=== PATIENT | male | born 1995 | race Caucasian/White ===

== ENCOUNTER 2020-08-04 17:59 | Emergency (ER) | payer SELFPAY ==
[~2020-08-04] VITALS: Ht 182.9 cm; Wt 99.8 kg
[2020-08-04 18:06] VITALS: BP_SYST 134
[2020-08-04] MEDS ORDERED: DIAZEPAM 5 MG TABLET (VALIUM) PO ONE (18:45)
[2020-08-04] MEDS ORDERED: KETOROLAC TROMETHAMINE 30 MG VIAL IM ONE (18:45)
[2020-08-04] MEDS ORDERED: NAPR-1172 PO (18:54)
[2020-08-04] MEDS ORDERED: DIAZ5TAB PO (18:54)
[2020-08-04 19:30] VITALS: BP_SYST 124
== END 2020-08-04 19:31 | disposition home or self-care (01) ==
LOC: SED 17:59
DX: S16.1XXA Strain of muscle, fascia and tendon at neck level, initial encounter (principal); M25.511 Pain in right shoulder; M25.512 Pain in left shoulder; M54.5 Low back pain; J45.909 Unspecified asthma, uncomplicated; Z79.899 Other long term (current) drug therapy; V49.49XA Driver injured in collision with other motor vehicles in traffic accident, initial encounter; Y93.89 Activity, other specified; Y92.89 Other specified places as the place of occurrence of the external cause; Y99.8 Other external cause status
CPT/HCPCS: 96372; 99283; J1885